=== PATIENT | male | born 1965 | race Hispanic/Latino ===

== ENCOUNTER 2022-07-01 10:12 | Emergency (ER) | payer SELFPAY ==
[2022-07-01 10:19] VITALS: BP 153/91
[2022-07-01 10:45] LABS: Basophils % (Auto) 0.4 % (0.0-1.8); Eosinophils # (Auto) 0.5 K/mm3 (0.0-0.4); Eosinophils % (Auto) 5.8 % (0.0-4.3); Hematocrit 44.2 % (35.5-45.6); Hemoglobin 15.5 gm/dl (11.8-15.2); Lymphocytes # (Auto) 1.4 K/mm3 (1.2-5.4); Lymphocytes % (Auto) 16.1 % (13.4-35.0); Mean Corpuscular HGB Conc 35 % (32-34); Mean Corpuscular Volume 89 fl (84-94); Monocytes # (Auto) 0.7 K/mm3 (0.0-0.8); Monocytes % (Auto) 8.5 % (0.0-7.3); Platelet Count 200 K/mm3 (140-440); Red Blood Count 4.98 M/mm3 (3.65-5.03); Red Cell Distribution Width 14.3 % (13.2-15.2)
[2022-07-01 11:06] LABS: Alanine Aminotransferase 18 units/L (7-56); Albumin 4.7 g/dL (3.9-5); BUN/Creatinine Ratio 13; Blood Urea Nitrogen 12 mg/dL (9-20); Calcium 9.2 mg/dL (8.4-10.2); Hemolysis Index 41
[2022-07-01 11:08] LABS: INR 0.92 (0.87-1.13); Partial Thromboplastin Time 33.1 Sec. (24.2-36.6)
--- NOTE | 2022-07-01 11:21 | XRay Report ---
CHEST 2 VIEWS INDICATION / CLINICAL INFORMATION: Chest Pain. COMPARISON: None available. FINDINGS: SUPPORT DEVICES: None. HEART / MEDIASTINUM: No significant abnormality. LUNGS / PLEURA: No significant pulmonary or pleural abnormality. No pneumothorax. ADDITIONAL FINDINGS: No significant additional findings. IMPRESSION: 1. No acute findings. Signer Name: Krishan Artis MD Signed: 07/01/2022 11:16 AM Workstation Name: [id number]
--- NOTE | 2022-07-02 09:23 | Electrocardiograph Report ---
[facility] Test Date: 2022-07-01 Test Time: 10:23:00 Pat Name: PADMINI ESTRADA Department: Room: Gender: M [employer] Facility Examiner: : 1965 Requested By: MELISSA CHEN Order Number: [id number] Reading MD: Pj Ann Measurements Intervals [place] Rate: 94 P: 31 MN: 177 QRS: 6 QRSD: 88 T: 15 QT: 329 QTc: 410 Interpretive Statements Sinus rhythm Ventricular premature complex No previous ECG available for comparison Electronically Signed On 07-02-2022 9:23:14 EDT by Pj Ann
== END 2022-07-01 14:32 | disposition left against medical advice (07) ==
LOC: ED 10:12
DX: M79.602 Pain in left arm (principal); Z53.21 Procedure and treatment not carried out due to patient leaving prior to being seen by health care provider
CPT/HCPCS: 36415; 71046; 80053; 84484; 85025; 85610; 85730; 93005